=== PATIENT | female | born 1980 | race Caucasian/White ===

== ENCOUNTER 2017-01-18 11:14 | Emergency (ER) | payer OTHER ==
[~2017-01-18] VITALS: Ht 182.9 cm; Wt 102.5 kg
[~2017-01-18 11:14] MED LIST: BENADRYL25 MG PO; NORCO 5-325 TA1 EACH PO; PROAIR HFA8.5 GM IH; PROTONIX40 MG PO
[2017-01-18] MEDS ORDERED: ZOFRAN ODT4 MG PO (17:29)
== END 2017-01-18 17:59 | disposition home or self-care (01) ==
LOC: ED 11:14
DX: K52.9 Noninfective gastroenteritis and colitis, unspecified (principal); E86.0 Dehydration; I10 Essential (primary) hypertension; Z90.49 Acquired absence of other specified parts of digestive tract; Z79.899 Other long term (current) drug therapy
CPT/HCPCS: 80053; 81001; 83690; 84703; 85025; 96361; 96374; 96376; 99284; J2405; J7030

== ENCOUNTER 2018-03-21 08:28 | Emergency (ER) | payer OTHER ==
[~2018-03-21] VITALS: Ht 182.9 cm; Wt 119.8 kg
[~2018-03-21 08:28] MED LIST changes: +ZOFRAN ODT4 MG PO
[2018-03-21] MEDS ORDERED: METFORMIN HCL500 M1 (08:40)
[2018-03-21] MEDS ORDERED: VITAMIN D250000 UNIT PO (08:40)
[2018-03-21] MEDS ORDERED: AMLODIPINE BESYL5 MG PO (08:40)
[2018-03-21] MEDS ORDERED: LEVOTHYROXINE50 MCG PO (08:40)
[2018-03-21] MEDS ORDERED: MELOXICAM7.5 MG PO (08:50)
== END 2018-03-21 09:44 | disposition home or self-care (01) ==
LOC: ED 08:28
DX: M79.671 Pain in right foot (principal); I10 Essential (primary) hypertension; Z79.899 Other long term (current) drug therapy; Z79.84 Long term (current) use of oral hypoglycemic drugs
CPT/HCPCS: 73630; 99283

== ENCOUNTER 2018-08-30 12:50 | Emergency (ER) | payer OTHER ==
[~2018-08-30] VITALS: Ht 182.9 cm; Wt 119.8 kg
[~2018-08-30 12:50] MED LIST changes: +AMLODIPINE BESYL5 MG PO; +LEVOTHYROXINE50 MCG PO; +MELOXICAM7.5 MG PO; +METFORMIN HCL500 M1; +VITAMIN D250000 UNIT PO
[2018-08-30] MEDS ORDERED: DOXYCYCLINE HY100 MG PO (16:12)
[2018-08-30] MEDS ORDERED: ROBAFEN AC ORA473 ML PO (16:12)
== END 2018-08-30 16:24 | disposition home or self-care (01) ==
LOC: ED 12:50
DX: J02.9 Acute pharyngitis, unspecified (principal); I10 Essential (primary) hypertension; E03.9 Hypothyroidism, unspecified; Z79.899 Other long term (current) drug therapy; Z79.84 Long term (current) use of oral hypoglycemic drugs
CPT/HCPCS: 99283

== ENCOUNTER 2018-12-08 22:38 | Emergency (ER) | payer OTHER ==
[~2018-12-08] VITALS: Ht 182.9 cm; Wt 119.8 kg
[~2018-12-08 22:38] MED LIST changes: +DOXYCYCLINE HY100 MG PO; +ROBAFEN AC ORA473 ML PO
[2018-12-08] MEDS ORDERED: ADVIL200 MG PO (22:49)
[2018-12-08] MEDS ORDERED: TRAMADOL HCL50 MG PO (23:51)
[2018-12-08] MEDS ORDERED: AMOXICILLIN500 MG PO (23:51)
== END 2018-12-09 00:06 | disposition home or self-care (01) ==
LOC: ED 22:38
DX: J02.9 Acute pharyngitis, unspecified (principal); I10 Essential (primary) hypertension; E03.9 Hypothyroidism, unspecified; Z79.899 Other long term (current) drug therapy
CPT/HCPCS: 87880; 99283

== ENCOUNTER 2020-10-26 19:46 | Emergency (ER) | payer OTHER ==
[~2020-10-26] VITALS: Ht 182.9 cm; Wt 119.8 kg
[~2020-10-26 19:46] MED LIST changes: +ADVIL200 MG PO; +AMOXICILLIN500 MG PO; +TRAMADOL HCL50 MG PO
[2020-10-26] MEDS ORDERED: LISINOPRIL20 MG PO (21:13)
[2020-10-26] MEDS ORDERED: HYDROCODON-ACE1 EA10 PO (21:35)
[2020-10-26] MEDS ORDERED: AUGMENTIN 875-1 EACH PO (21:35)
== END 2020-10-26 22:03 | disposition home or self-care (01) ==
LOC: ED 19:46
DX: H65.192 Other acute nonsuppurative otitis media, left ear (principal); I10 Essential (primary) hypertension; E03.9 Hypothyroidism, unspecified; Z79.899 Other long term (current) drug therapy
CPT/HCPCS: 99282

== ENCOUNTER 2021-07-21 11:06 | Emergency (ER) | payer OTHER ==
[~2021-07-21] VITALS: Ht 182.9 cm; Wt 119.8 kg
[~2021-07-21 11:06] MED LIST changes: +AUGMENTIN 875-1 EACH PO; +HYDROCODON-ACE1 EA10 PO; +LISINOPRIL20 MG PO
[2021-07-21] MEDS ORDERED: PSEUDOEPHEDRINE60 MG PO (11:43)
[2021-07-21] MEDS ORDERED: ZITHROMAX250 MG PO (11:51)
== END 2021-07-21 12:07 | disposition home or self-care (01) ==
LOC: ED 11:06
DX: J06.9 Acute upper respiratory infection, unspecified (principal); H66.92 Otitis media, unspecified, left ear; I10 Essential (primary) hypertension; E03.9 Hypothyroidism, unspecified; Z79.899 Other long term (current) drug therapy; Z79.890 Hormone replacement therapy
CPT/HCPCS: 99283

== ENCOUNTER 2025-03-03 12:06 | Emergency (ER) | payer OTHER ==
[~2025-03-03] VITALS: Ht 180.3 cm; Wt 120.3 kg
[~2025-03-03 12:06] MED LIST changes: +PSEUDOEPHEDRINE60 MG PO; +ZITHROMAX250 MG PO
[2025-03-03] MEDS ORDERED: METFORMIN HCL500 M2 PO (12:22)
[2025-03-03] MEDS ORDERED: PREDNISONE20 MG PO (14:14)
[2025-03-03 14:25] VITALS: BP 190/108
== END 2025-03-03 14:28 | disposition home or self-care (01) ==
LOC: ED 12:06
DX: M25.531 Pain in right wrist (principal); I10 Essential (primary) hypertension; E03.9 Hypothyroidism, unspecified; Z79.890 Hormone replacement therapy; Z79.899 Other long term (current) drug therapy; Z79.84 Long term (current) use of oral hypoglycemic drugs
CPT/HCPCS: 73130; 99283